=== PATIENT | male | born 1970 | race Two or more races ===

== ENCOUNTER 2023-04-26 07:06 | Emergency (ER) | payer MEDICAID ==
[~2023-04-26] VITALS: Ht 175.3 cm; Wt 91.2 kg
[2023-04-26] MEDS ORDERED: NAPR-1334 PO (08:31)
[2023-04-26 08:46] VITALS: BP 117/76; PULSE 57; RESP 18; TEMP 97.8; O2SAT 97
== END 2023-04-26 08:48 | disposition home or self-care (01) ==
LOC: ER 07:06
DX: R51.9 Headache, unspecified (principal); L04.0 Acute lymphadenitis of face, head and neck
CPT/HCPCS: 70450; 82962; 93005